=== PATIENT | female | born 1990 | race African-American/Black ===

== ENCOUNTER 2017-11-16 15:18 | Emergency (ER) | payer OTHER ==
[~2017-11-16] VITALS: Ht 162.6 cm; Wt 71.7 kg
[2017-11-16] MEDS ORDERED: MOBIC7.5 MG PO (15:48)
[2017-11-16] MEDS ORDERED: NORFLEX100 MG PO (15:48)
[2017-11-16 16:38] VITALS: BP 110/70
== END 2017-11-16 16:42 | disposition home or self-care (01) ==
LOC: ER 15:18
DX: M62.830 Muscle spasm of back (principal); M54.6 Pain in thoracic spine

== ENCOUNTER 2018-03-18 02:28 | Emergency (ER) | payer OTHER ==
[~2018-03-18] VITALS: Ht 162.6 cm; Wt 73.0 kg
[~2018-03-18 02:28] MED LIST: MOBIC7.5 MG PO; NORFLEX100 MG PO
[2018-03-18 02:38] VITALS: BP 128/78
[2018-03-18] MEDS ORDERED: ANTIFUNGAL113 GM (02:43)
[2018-03-18 02:47] LABS: URINE BILIRUBIN NEGATIVE (Negative); URINE BLOOD NEGATIVE (Negative); URINE CLARITY CLEAR; URINE COLOR YELLOW; URINE GLUCOSE-RANDOM* NEGATIVE (Negative); URINE KETONES NEGATIVE (Negative); URINE LEUKOCYTES-REFLEX NEGATIVE (Negative); URINE NITRITE-REFLEX NEGATIVE (Negative); URINE PROTEIN (DIPSTICK) NEGATIVE (Negative); URINE SPECIFIC GRAVITY <= 1.005 (1.005-1.035); URINE UROBILINOGEN 0.2 E.U./dl (0.2-1.0)
[2018-03-18] MEDS ORDERED: ANUSOL-HC25 MG RECTAL (03:20)
== END 2018-03-18 03:36 | disposition home or self-care (01) ==
LOC: ER 02:28
PROVIDERS: Emergency Medicine
DX: K62.5 Hemorrhage of anus and rectum (principal); K59.09 Other constipation; R19.7 Diarrhea, unspecified